=== PATIENT | male | born 2000 | race Two or more races ===

== ENCOUNTER 2021-05-07 12:22 | Emergency (ER) | payer MEDICAID, OTHER, SELFPAY ==
[~2021-05-07] VITALS: Ht 167.6 cm; Wt 73.7 kg
[2021-05-07 12:34] VITALS: BP 125/88
--- NOTE | 2021-05-07 13:49 | NUR ---
ANALIA LUNA AT BEDSIDE.
--- NOTE | 2021-05-07 14:56 | NUR ---
PER ANALIA LUNA, PT TO TRY FOR STOOL SAMPLE PRIOR TO DC.
--- NOTE | 2021-05-07 15:05 | NUR ---
PT STATES OK TO CALL HIM OR FATHER W/ STOOL SAMPLE RESULTS.
--- NOTE | 2021-05-07 15:10 | NUR ---
Patient given discharge instructions and they have confirmed that they understand the instructions. Patient ambulatory with steady gait.
[2021-05-07 16:02] LABS: CRYPTOSPORIDIUM ANTIGEN Negative (Negative)
== END 2021-05-07 15:11 | disposition home or self-care (01) ==
LOC: ED 14:14
DX: F41.1 Generalized anxiety disorder (principal); R06.02 Shortness of breath
CPT/HCPCS: 71045; 87328; 87329; 89055; 93005; 99283; 99285